=== PATIENT | female | born 1970 | race Caucasian/White ===

== ENCOUNTER 2017-10-13 11:36 | Emergency (ER) | payer OTHER ==
[~2017-10-13] VITALS: Ht 162.6 cm; Wt 76.2 kg
[~2017-10-13 11:36] MED LIST: ACET-787 PO; CIPR500T4 PO; OMEP40EC1 PO; TRAZ-289 PO
[2017-10-13 11:53] VITALS: BP 127/82
--- NOTE | 2017-10-13 12:30 | NUR ---
ekg reviewed by --okay to wait in lobby
--- NOTE | 2017-10-13 12:40 | NUR ---
46F BIB SELF WITH C/O PERSISTANT HACKING COUGH, CHEST CONGESTION, ANTERIOR CHEST WALL-BACK -AND RIB PAIN UPON COUGHING, WORSEN OVER LAST 3 DAYS. PT ALSO REPORTS OF 8/10 GENERALIZED BODY PAIN. PT IS AOX4 WITH STEADY GAIT. RR ARE EVEN AND UNLABORED. NAD AT THIS TIME. AWAITING ER MD GARCIA. WILL CONTINUE TO MONITOR.
[2017-10-13] MEDS ORDERED: ALBUTEROL SULFATE/IPRATROPIU 3 ML SOL IH ONE (13:15)
[2017-10-13] MEDS ORDERED: predniSONE 20 MG TAB PO ONE (13:15)
[2017-10-13] MEDS ORDERED: HYDROcodone/APAP 5/325 MG 1 TAB TAB PO ONE (13:25)
--- NOTE | 2017-10-13 14:47 | NUR ---
Patient discharged with v/s stable. Written and verbal after care instructions given and explained. Patient alert, oriented and verbalized understanding of instructions. Ambulatory with steady gait. All questions addressed prior to discharge. ID band removed. Patient advised to follow up with PMD. Rx of albuterol, azithromycin, norco, and prednisone given. Patient educated on indication of medication including possible reaction and side effects. Opportunity to ask questions provided and answered.
[2017-10-13 14:48] VITALS: BP 122/76
== END 2017-10-13 14:47 | disposition home or self-care (01) ==
LOC: MED 11:36
DX: J40 Bronchitis, not specified as acute or chronic (principal); F41.9 Anxiety disorder, unspecified; F17.210 Nicotine dependence, cigarettes, uncomplicated; Z79.899 Other long term (current) drug therapy
CPT/HCPCS: 36415; 71045; 87804; 93005; 94640; 99285; J7512; J7620